=== PATIENT | female | born 1950 | race Caucasian/White ===

== ENCOUNTER → 2017-07-09 | Outpatient (CLI) | payer OTHER, BC ==
[~2017-07-09] MED LIST: AMBIEN10 M1 PO; ATIVAN1 MG PO; CIPRO500 MG PO; COREG12.5 MG PO; COZAAR50 MG PO; Ciprofloxacin500 MG PO; FLAGYL500 MG PO; GOOD SENSE ASPI81 M1 PO; HYDROCHLOROTHIA25 MG PO; KLOR-CON20 MEQ PO; METFORMIN HCL500 M1 PO; NAPROSYN500 MG PO; NEURONTIN600 MG PO; NORCO 10-325 T1 EACH PO; PANTOPRAZOLE40 M1 PO; PRAVACHOL40 MG PO; PROBIOTIC FORMU1 CAP PO; PROTONIX20 MG PO; VICODIN 5/500 505 MG PO; VICODIN 500 MG-1 TAB PO; ZESTRIL10 MG PO; ZOFRAN ODT4 MG SL; ZOLPIDEM10 MG PO
== END | disposition home or self-care (01) ==
LOC: CT 10:56
DX: R91.1 Solitary pulmonary nodule (principal)

== ENCOUNTER → 2017-10-20 | Outpatient (CLI) | payer OTHER ==
[2017-10-20 11:52] LABS: BASO % 0.9 % (0.0-1.0); EOS # 0.2 10*3/uL (0.0-0.4); EOS % 3.3 % (1.0-4.0); HEMATOCRIT 38.3 % (37.0-47.0); HEMOGLOBIN 12.6 g/dl (12.0-16.0); LYMPH # 1.9 10*3/uL (1.3-4.4); LYMPH % 42.2 % (27.0-41.0); MEAN CELL VOLUME 91.4 fl (81.0-99.0); MEAN CORPUSCULAR HGB 30.1 pg (27.0-31.0); MEAN CORPUSCULAR HGB CONC 32.9 g/dl (33.0-37.0); MONO # 0.4 10*3/uL (0.1-1.0); NEUT # 2.1 10*3/uL (2.3-7.9); NEUT % 45.6 % (47.0-73.0); PLATELET COUNT AUTOMATED 186 10*3/uL (130-400); RED BLOOD COUNT 4.19 10*6/uL (4.10-5.10); RED CELL DISTRI WIDTH 12.1 % (0-14.5); WHITE BLOOD COUNT 4.6 10*3/uL (4.8-10.8)
[2017-10-20 12:21] LABS: ALBUMIN 3.9 gm/dl (3.1-4.5); BILIRUBIN, DIRECT 0.2 mg/dL (0.0-0.2); FREE T4 1.01 ng/dl (0.76-1.46)
[2017-10-20 12:26] LABS: THYROID STIM HORMONE (HS) 0.535 uIU/ml (0.358-4.75)
[2017-10-21 05:08] LABS: FREE T3 010389 3.1 pg/mL (2.0-4.4)
[2017-10-21 13:04] LABS: THYROGLOBULIN ANTIBODY 6.2 IU/mL (0.0-0.9)
== END | disposition home or self-care (01) ==
LOC: LAB 11:35
PROVIDERS: Internal Medicine
DX: E05.90 Thyrotoxicosis, unspecified without thyrotoxic crisis or storm (principal); E55.9 Vitamin D deficiency, unspecified; E04.2 Nontoxic multinodular goiter; R79.89 Other specified abnormal findings of blood chemistry

== ENCOUNTER → 2017-12-24 | Outpatient (CLI) | payer OTHER, MEDICARE ==
[2017-12-24 12:11] LABS: BUN 9 mg/dl (7-24); CHLORIDE 103 mmol/L (98-107); CHOLESTEROL 139 mg/dL (<200); CPK 23 U/L (26-192); CREATININE 0.73 mg/dL (0.55-1.02); HDL CHOLESTEROL 46 mg/dl (40-60); LDL CHOLESTEROL 64 mg/dL (9-159); POTASSIUM 4.2 mmol/L (3.5-5.1); SODIUM 140 mmol/L (136-145); TRIGLYCERIDES 145 mg/dl (<150); VLDL CHOLESTEROL 29 mg/dL (6-40)
[2017-12-24 12:17] LABS: THYROID STIM HORMONE (HS) 0.259 uIU/ml (0.358-4.75)
[2017-12-25 09:46] LABS: CREATININE,URINE 122.6 mg/dL (Not Estab.); MICRO ALBUMIN/CRE RATIO 6.1 (0.0-30.0)
== END | disposition home or self-care (01) ==
LOC: LAB 11:13
PROVIDERS: Family Medicine
DX: E78.00 Pure hypercholesterolemia, unspecified (principal); E11.9 Type 2 diabetes mellitus without complications

== ENCOUNTER → 2018-07-10 | Outpatient (CLI) | payer OTHER, MEDICARE, BC ==
[2018-07-10 10:18] LABS: BASO % 0.9 % (0.0-1.0); EOS # 0.1 10*3/uL (0.0-0.4); EOS % 3.1 % (1.0-4.0); HEMATOCRIT 37.2 % (37.0-47.0); HEMOGLOBIN 11.8 g/dl (12.0-16.0); LYMPH # 1.6 10*3/uL (1.3-4.4); LYMPH % 38.5 % (27.0-41.0); MEAN CELL VOLUME 93.7 fl (81.0-99.0); MEAN CORPUSCULAR HGB 29.7 pg (27.0-31.0); MEAN CORPUSCULAR HGB CONC 31.7 g/dl (33.0-37.0); MONO # 0.3 10*3/uL (0.1-1.0); MONO % 7.5 % (3.0-9.0); NEUT # 2.1 10*3/uL (2.3-7.9); NEUT % 49.8 % (47.0-73.0); PLATELET COUNT AUTOMATED 186 10*3/uL (130-400); RED BLOOD COUNT 3.97 10*6/uL (4.10-5.10); RED CELL DISTRI WIDTH 12.3 % (0-14.5); WHITE BLOOD COUNT 4.3 10*3/uL (4.8-10.8)
[2018-07-10 10:50] LABS: BUN 14 mg/dl (7-24); CHLORIDE 105 mmol/L (98-107); CHOLESTEROL 150 mg/dL (<200); CREATININE 0.91 mg/dL (0.55-1.02); HDL CHOLESTEROL 51 mg/dl (40-60); LDL CHOLESTEROL 70 mg/dL (9-159); POTASSIUM 4.4 mmol/L (3.5-5.1); SGOT/AST 19 IU/L (3-35); SGPT/ALT 18 U/L (12-78); SODIUM 140 mmol/L (136-145); TRIGLYCERIDES 143 mg/dl (<150); VLDL CHOLESTEROL 29 mg/dL (6-40)
== END | disposition home or self-care (01) ==
LOC: LAB 09:48
PROVIDERS: Internal Medicine Cardiovascular Disease
DX: I10 Essential (primary) hypertension (principal); E78.5 Hyperlipidemia, unspecified

== ENCOUNTER → 2018-08-15 | Outpatient (CLI) | payer OTHER, BC ==
[2018-08-15 11:23] LABS: BILIRUBIN NEGATIVE (NEGATIVE); BLOOD NEGATIVE (NEGATIVE); CLARITY SL CLOUDY (CLEAR); COLOR YELLOW (YELLOW); GLUCOSE NEGATIVE (NEGATIVE); KETONE NEGATIVE (NEGATIVE); LEUKO ESTERASE NEGATIVE (NEGATIVE); NITRITE NEGATIVE (NEGATIVE); SPECIFIC GRAVITY <= 1.005 (1.005-1.030); UROBILINOGEN 0.2 E.U./dl (0.2-1.0)
[2018-08-15 11:36] LABS: BACTERIA TRACE
[2018-08-15 11:56] LABS: ALBUMIN 3.6 gm/dl (3.1-4.5); ALKALINE PHOSPHATASE 64 U/L (45-117); BILIRUBIN, DIRECT 0.2 mg/dL (0.0-0.2); BUN 9 mg/dl (7-24); CHLORIDE 101 mmol/L (98-107); CHOLESTEROL 126 mg/dL (<200); FREE T4 1.29 ng/dl (0.76-1.46); HDL CHOLESTEROL 47 mg/dl (40-60); LDL CHOLESTEROL 48 mg/dL (9-159); POTASSIUM 4.4 mmol/L (3.5-5.1); SGOT/AST 15 IU/L (3-35); SGPT/ALT 19 U/L (12-78); SODIUM 137 mmol/L (136-145); TOTAL PROTEIN 6.6 gm/dL (6.4-8.2); TRIGLYCERIDES 157 mg/dl (<150); VLDL CHOLESTEROL 31 mg/dL (6-40)
[2018-08-15 12:01] LABS: THYROID STIM HORMONE (HS) 0.154 uIU/ml (0.358-4.75)
== END | disposition home or self-care (01) ==
LOC: LAB 10:35
PROVIDERS: Internal Medicine
DX: E11.9 Type 2 diabetes mellitus without complications (principal); E78.5 Hyperlipidemia, unspecified; E89.0 Postprocedural hypothyroidism

== ENCOUNTER → 2019-01-09 | Outpatient (CLI) | payer OTHER ==
[~2019-01-09] MED LIST changes: +DOXYCYCLINE100 M3 PO
[2019-01-09 10:15] LABS: BILIRUBIN NEGATIVE (NEGATIVE); BLOOD NEGATIVE (NEGATIVE); CLARITY CLEAR (CLEAR); COLOR YELLOW (YELLOW); GLUCOSE NEGATIVE (NEGATIVE); KETONE NEGATIVE (NEGATIVE); LEUKO ESTERASE NEGATIVE (NEGATIVE); NITRITE NEGATIVE (NEGATIVE); SPECIFIC GRAVITY <= 1.005 (1.005-1.030); UROBILINOGEN 0.2 E.U./dl (0.2-1.0)
[2019-01-09 10:43] LABS: WBC 0-2 wbc/hpf (0-5)
[2019-01-09 10:46] LABS: ALBUMIN 3.7 gm/dl (3.1-4.5); BILIRUBIN, DIRECT 0.2 mg/dL (0.0-0.2); BUN 9 mg/dl (7-24); CHLORIDE 105 mmol/L (98-107); CHOLESTEROL 133 mg/dL (<200); CREATININE 0.65 mg/dL (0.55-1.02); POTASSIUM 4.4 mmol/L (3.5-5.1); SGOT/AST 15 IU/L (3-35); SGPT/ALT 17 U/L (12-78); SODIUM 141 mmol/L (136-145); TOTAL PROTEIN 6.5 gm/dL (6.4-8.2); TRIGLYCERIDES 135 mg/dl (<150); VLDL CHOLESTEROL 27 mg/dL (6-40)
[2019-01-09 10:52] LABS: ALKALINE PHOSPHATASE 66 U/L (45-117); FREE T4 1.56 ng/dl (0.76-1.46); HDL CHOLESTEROL 49 mg/dl (40-60); LDL CHOLESTEROL 57 mg/dL (9-159); THYROID STIM HORMONE (HS) 0.014 uIU/ml (0.358-4.75)
== END | disposition home or self-care (01) ==
LOC: LAB 09:37
PROVIDERS: Internal Medicine
DX: E11.9 Type 2 diabetes mellitus without complications (principal); E89.0 Postprocedural hypothyroidism; E78.5 Hyperlipidemia, unspecified; E55.9 Vitamin D deficiency, unspecified

== ENCOUNTER 2019-03-29 11:00 | Emergency (ER) | payer OTHER ==
[~2019-03-29] VITALS: Ht 157.4 cm; Wt 68.0 kg
[~2019-03-29 11:00] MED LIST changes: -DOXYCYCLINE100 M3 PO
[2019-03-29] MEDS ORDERED: DOXYCYCLINE100 M3 PO (11:32)
== END 2019-03-29 11:34 | disposition home or self-care (01) ==
LOC: ED 11:00
DX: N75.0 Cyst of Bartholin's gland (principal); I10 Essential (primary) hypertension; E11.9 Type 2 diabetes mellitus without complications; K21.9 Gastro-esophageal reflux disease without esophagitis; E89.0 Postprocedural hypothyroidism; E78.5 Hyperlipidemia, unspecified; Z79.899 Other long term (current) drug therapy; Z79.82 Long term (current) use of aspirin; Z88.1 Allergy status to other antibiotic agents; Z86.14 Personal history of Methicillin resistant Staphylococcus aureus infection; Z87.19 Personal history of other diseases of the digestive system; Z85.9 Personal history of malignant neoplasm, unspecified

== ENCOUNTER → 2019-05-16 | Outpatient (CLI) | payer OTHER ==
[~2019-05-16] MED LIST changes: +DOXYCYCLINE100 M3 PO
[2019-05-16 11:49] LABS: BILIRUBIN NEGATIVE (NEGATIVE); BLOOD NEGATIVE (NEGATIVE); CLARITY CLEAR (CLEAR); COLOR YELLOW (YELLOW); GLUCOSE NEGATIVE (NEGATIVE); KETONE NEGATIVE (NEGATIVE); LEUKO ESTERASE NEGATIVE (NEGATIVE); NITRITE NEGATIVE (NEGATIVE); PH 6.5 (5.0-9.0); UROBILINOGEN 0.2 E.U./dl (0.2-1.0)
[2019-05-16 11:54] LABS: BASO % 0.7 % (0.0-1.0); EOS # 0.1 10*3/uL (0.0-0.4); EOS % 3.5 % (1.0-4.0); HEMATOCRIT 35.5 % (37.0-47.0); HEMOGLOBIN 11.2 g/dl (12.0-16.0); LYMPH # 1.4 10*3/uL (1.3-4.4); LYMPH % 34.3 % (27.0-41.0); MEAN CELL VOLUME 94.7 fl (81.0-99.0); MEAN CORPUSCULAR HGB 29.9 pg (27.0-31.0); MEAN CORPUSCULAR HGB CONC 31.5 g/dl (33.0-37.0); MONO # 0.3 10*3/uL (0.1-1.0); MONO % 7.7 % (3.0-9.0); NEUT # 2.2 10*3/uL (2.3-7.9); NEUT % 53.8 % (47.0-73.0); PLATELET COUNT AUTOMATED 193 10*3/uL (130-400); RED BLOOD COUNT 3.75 10*6/uL (4.10-5.10); RED CELL DISTRI WIDTH 12.5 % (0-14.5); WHITE BLOOD COUNT 4.1 10*3/uL (4.8-10.8)
[2019-05-16 12:12] LABS: RBC 0-2 rbc/hpf (0-2); WBC 0-2 wbc/hpf (0-5)
[2019-05-16 12:23] LABS: BILIRUBIN, DIRECT 0.1 mg/dL (0.0-0.2); FREE T4 1.16 ng/dl (0.76-1.46)
[2019-05-16 12:24] LABS: ALBUMIN 3.6 gm/dl (3.1-4.5); ALKALINE PHOSPHATASE 66 U/L (45-117); BUN 8 mg/dl (7-24); CHLORIDE 107 mmol/L (98-107); CHOLESTEROL 145 mg/dL (<200); CREATININE 0.76 mg/dL (0.55-1.02); HDL CHOLESTEROL 56 mg/dl (40-60); LDL CHOLESTEROL 73 mg/dL (9-159); POTASSIUM 4.4 mmol/L (3.5-5.1); SGOT/AST 17 IU/L (3-35); SGPT/ALT 16 U/L (12-78); SODIUM 141 mmol/L (136-145); TOTAL PROTEIN 6.6 gm/dL (6.4-8.2); TRIGLYCERIDES 80 mg/dl (<150); VLDL CHOLESTEROL 16 mg/dL (6-40)
[2019-05-16 12:31] LABS: THYROID STIM HORMONE (HS) 0.687 uIU/ml (0.358-4.75)
== END | disposition home or self-care (01) ==
LOC: LAB 11:23
PROVIDERS: Family Medicine; Internal Medicine
DX: E78.5 Hyperlipidemia, unspecified (principal); E11.9 Type 2 diabetes mellitus without complications; E55.9 Vitamin D deficiency, unspecified; E03.9 Hypothyroidism, unspecified; E78.2 Mixed hyperlipidemia; R53.83 Other fatigue

== ENCOUNTER → 2019-05-31 | Outpatient (CLI) | payer OTHER ==
[2019-05-31 10:29] LABS: HEMATOCRIT 36.6 % (37.0-47.0); RETICULOCYTE % 1.48 % (0.50-2.50)
[2019-05-31 10:49] LABS: IRON 80 ug/dL (50-170); TOTAL IRON BINDING CAPACITY 407 ug/dl (250-450)
== END | disposition home or self-care (01) ==
LOC: LAB 09:50
PROVIDERS: Internal Medicine
DX: D64.9 Anemia, unspecified (principal)

== ENCOUNTER → 2019-08-04 | Outpatient (CLI) | payer OTHER | END | disposition home or self-care (01) | LOC: RAD 13:59 | DX: R10.12 Left upper quadrant pain (principal); R10.32 Left lower quadrant pain ==

== ENCOUNTER → 2019-11-14 | Outpatient (CLI) | payer OTHER | END | disposition home or self-care (01) | LOC: CARD 10:21 | DX: I10 Essential (primary) hypertension (principal); R01.1 Cardiac murmur, unspecified ==

== ENCOUNTER → 2020-07-28 | Outpatient (CLI) | payer MEDICARE ==
[2020-07-28 10:15] LABS: BILIRUBIN Negative (Negative); BLOOD Negative (Negative); CLARITY Clear (Clear); COLOR Yellow (Yellow); GLUCOSE Negative (Negative); KETONE Negative (Negative); LEUKO ESTERASE Negative (Negative); NITRITE Negative (Negative); SPECIFIC GRAVITY 1.015 (1.001-1.030)
[2020-07-28 10:16] LABS: HEMATOCRIT 38.2 % (37.0-47.0); RETICULOCYTE % 1.15 % (0.50-2.50)
[2020-07-28 10:32] LABS: ALBUMIN 3.7 gm/dl (3.1-4.5); ALKALINE PHOSPHATASE 77 U/L (45-117); BILIRUBIN, DIRECT 0.2 mg/dL (0.0-0.2); BUN 8 mg/dl (7-24); CHLORIDE 106 mmol/L (98-107); CHOLESTEROL 178 mg/dL (<200); CREATININE 0.69 mg/dL (0.55-1.02); HDL CHOLESTEROL 65 mg/dl (40-60); IRON 91 ug/dL (50-170); LDL CHOLESTEROL 87 mg/dL (9-159); POTASSIUM 4.4 mmol/L (3.5-5.1); SGOT/AST 20 IU/L (3-35); SGPT/ALT 24 U/L (12-78); SODIUM 139 mmol/L (136-145); TOTAL IRON BINDING CAPACITY 426 ug/dl (250-450); TRIGLYCERIDES 132 mg/dl (<150); VLDL CHOLESTEROL 26 mg/dL (6-40)
[2020-07-28 10:38] LABS: FREE T4 1.31 ng/dl (0.76-1.46); TOTAL PROTEIN 6.9 gm/dL (6.4-8.2)
[2020-07-28 11:45] LABS: VITAMIN D, 25-HYDROXY 56.1 ng/mL (30-100)
== END | disposition home or self-care (01) ==
LOC: LAB 00:30
PROVIDERS: ATTEND Internal Medicine
DX: D64.9 Anemia, unspecified (principal); E78.5 Hyperlipidemia, unspecified; E11.9 Type 2 diabetes mellitus without complications

== ENCOUNTER → 2020-08-15 | Outpatient (CLI) | payer MEDICARE | END | disposition home or self-care (01) | LOC: COVID19 10:35 | PROVIDERS: ATTEND Family Medicine | DX: U07.1 COVID-19 (principal) ==

== ENCOUNTER → 2020-10-21 | Outpatient (CLI) | payer MEDICARE ==
[2020-10-21 13:20] LABS: HEMATOCRIT 40.4 % (37.0-47.0); RETICULOCYTE % 0.99 % (0.50-2.50)
[2020-10-21 13:22] LABS: BILIRUBIN Negative (Negative); BLOOD Negative (Negative); CLARITY Clear (Clear); COLOR Yellow (Yellow); GLUCOSE Negative (Negative); KETONE Negative (Negative); LEUKO ESTERASE Trace (Negative); NITRITE Negative (Negative); SPECIFIC GRAVITY 1.015 (1.001-1.030)
[2020-10-21 13:48] LABS: BACTERIA 1+
[2020-10-21 14:02] LABS: ALBUMIN 3.8 gm/dl (3.1-4.5); ALKALINE PHOSPHATASE 64 U/L (45-117); BILIRUBIN, DIRECT 0.2 mg/dL (0.0-0.2); BUN 10 mg/dl (7-24); CHLORIDE 107 mmol/L (98-107); CHOLESTEROL 154 mg/dL (<200); CREATININE 0.77 mg/dL (0.55-1.02); HDL CHOLESTEROL 54 mg/dl (40-60); IRON 120 ug/dL (50-170); LDL CHOLESTEROL 71 mg/dL (9-159); POTASSIUM 4.6 mmol/L (3.5-5.1); SGOT/AST 14 IU/L (3-35); SGPT/ALT 24 U/L (12-78); SODIUM 139 mmol/L (136-145); TOTAL IRON BINDING CAPACITY 419 ug/dl (250-450); TOTAL PROTEIN 6.8 gm/dL (6.4-8.2); TRIGLYCERIDES 147 mg/dl (<150); VITAMIN D, 25-HYDROXY 57.6 ng/mL (30-100); VLDL CHOLESTEROL 29 mg/dL (6-40)
[2020-10-21 14:08] LABS: FREE T4 1.28 ng/dl (0.76-1.46); THYROID STIM HORMONE (HS) 0.244 uIU/ml (0.358-4.75)
== END | disposition home or self-care (01) ==
LOC: LAB 12:36
PROVIDERS: ATTEND Internal Medicine
DX: E11.9 Type 2 diabetes mellitus without complications (principal); E55.9 Vitamin D deficiency, unspecified; D64.9 Anemia, unspecified; E78.5 Hyperlipidemia, unspecified; E89.0 Postprocedural hypothyroidism

== ENCOUNTER → 2021-02-10 | Outpatient (CLI) | payer MEDICARE, BC ==
[2021-02-10 15:50] LABS: BILIRUBIN Negative (Negative); BLOOD Negative (Negative); CLARITY Clear (Clear); COLOR Yellow (Yellow); GLUCOSE Negative (Negative); KETONE Negative (Negative); LEUKO ESTERASE Negative (Negative); NITRITE Negative (Negative); PH 6.5 (4.5-8.0); UROBILINOGEN 0.2 E.U./dl (0.0-1.0)
[2021-02-10 15:55] LABS: ALBUMIN 3.7 gm/dl (3.1-4.5); BILIRUBIN, DIRECT 0.2 mg/dL (0.0-0.2); BUN 11 mg/dl (7-24); CHLORIDE 105 mmol/L (98-107); CHOLESTEROL 194 mg/dL (<200); SGOT/AST 12 IU/L (3-35); SGPT/ALT 14 U/L (12-78); SODIUM 138 mmol/L (136-145); TRIGLYCERIDES 176 mg/dl (<150)
[2021-02-10 16:03] LABS: ALKALINE PHOSPHATASE 68 U/L (45-117); CREATININE 0.79 mg/dL (0.55-1.02); FREE T4 1.02 ng/dl (0.76-1.46); IRON 94 ug/dL (50-170); LDL CHOLESTEROL 98 mg/dL (9-159); TOTAL IRON BINDING CAPACITY 430 ug/dl (250-450)
[2021-02-10 16:19] LABS: BACTERIA TRACE; EPITHELIAL CELLS 16-20; FINE GRANULAR CAST 0-2; RBC 0-2 rbc/hpf (0-2)
== END | disposition home or self-care (01) ==
LOC: LAB 14:32
PROVIDERS: ATTEND Internal Medicine
DX: E78.5 Hyperlipidemia, unspecified (principal); E11.9 Type 2 diabetes mellitus without complications; D64.9 Anemia, unspecified; E55.9 Vitamin D deficiency, unspecified; E89.0 Postprocedural hypothyroidism

== ENCOUNTER → 2021-04-29 | Outpatient (CLI) | payer MEDICARE, BC | END | disposition home or self-care (01) | LOC: LAB 13:40 | PROVIDERS: ATTEND Internal Medicine Cardiovascular Disease | DX: Z20.822 Contact with and (suspected) exposure to COVID-19 (principal); Z13.83 Encounter for screening for respiratory disorder NEC ==

== ENCOUNTER → 2022-01-02 | Outpatient (CLI) | payer MEDICARE, BC ==
[2022-01-02 14:23] LABS: ALKALINE PHOSPHATASE 74 U/L (45-117); BUN 11 mg/dl (7-24); CHLORIDE 101 mmol/L (98-107); CHOLESTEROL 153 mg/dL (<200); CREATININE 0.83 mg/dL (0.55-1.02); LDL CHOLESTEROL 67 mg/dL (9-159); POTASSIUM 4.7 mmol/L (3.5-5.1); SGOT/AST 17 IU/L (3-35); SGPT/ALT 16 U/L (12-78); SODIUM 137 mmol/L (136-145); TRIGLYCERIDES 124 mg/dl (<150)
[2022-01-02 14:29] LABS: THYROID STIM HORMONE (HS) 0.344 uIU/ml (0.358-4.75)
== END | disposition home or self-care (01) ==
LOC: LAB 13:16
PROVIDERS: ATTEND Family Medicine
DX: I10 Essential (primary) hypertension (principal); E11.9 Type 2 diabetes mellitus without complications; E78.2 Mixed hyperlipidemia

== ENCOUNTER → 2023-03-24 | Outpatient (CLI) | payer MEDICARE, BC ==
[2023-03-24 11:58] LABS: ALKALINE PHOSPHATASE 57 U/L (46-116); BUN 7 mg/dl (9-23); CHLORIDE 106 mmol/L (98-107); CHOLESTEROL 134 mg/dL (<200); LDL CHOLESTEROL 59 mg/dL (9-159); POTASSIUM 4.2 mmol/L (3.4-5.1); SGPT/ALT 7 U/L (10-49); TOTAL PROTEIN 6.6 gm/dL (6.0-8.0); TRIGLYCERIDES 113 mg/dl (<150)
== END | disposition home or self-care (01) ==
LOC: LAB 10:36
PROVIDERS: ATTEND Family Medicine
DX: E11.9 Type 2 diabetes mellitus without complications (principal); E78.2 Mixed hyperlipidemia; I25.10 Atherosclerotic heart disease of native coronary artery without angina pectoris; I10 Essential (primary) hypertension

== ENCOUNTER → 2023-08-15 | Outpatient (CLI) | payer MEDICARE, BC ==
[~2023-08-15] MED LIST changes: +CLOPIDOGREL75 MG PO; -COREG12.5 MG PO; +COREG3.125 MG PO; +CRESTOR5 M1 PO; +FOSAMAX70 M1 PO; +LEVOTHYROXINE88 MCG PO; +METAMUCIL0.4 G1 PO; +TRULICITY1.5 MG/0.5 SC; +VITAMIN B1250 MCG IM; +VITAMIN D3 PO
== END | disposition home or self-care (01) ==
LOC: US 15:44
PROVIDERS: ATTEND Family Medicine
DX: R93.89 Abnormal findings on diagnostic imaging of other specified body structures (principal); N85.00 Endometrial hyperplasia, unspecified

== ENCOUNTER → 2023-08-16 | Outpatient (CLI) | payer MEDICARE, BC | END | disposition home or self-care (01) | LOC: CARD 00:24 | PROVIDERS: ATTEND Internal Medicine Cardiovascular Disease | DX: Z01.810 Encounter for preprocedural cardiovascular examination (principal); I25.10 Atherosclerotic heart disease of native coronary artery without angina pectoris; R06.02 Shortness of breath ==